=== PATIENT | male | born 1990 | race Caucasian/White ===

== ENCOUNTER 2020-12-09 22:47 | Emergency (ER) | payer MEDICAID, SELFPAY ==
--- NOTE | ~2020-12-09 | XR_ITS ---
EXAMINATION: XR ELBOW, RIGHT CLINICAL INFORMATION: Injury. Pain. COMPARISON: None TECHNIQUE: AP, lateral, and oblique views of the right elbow. FINDINGS: There is a there is a calcified density seen on the lateral view along the anterior aspect of the joint. This may represent an intra-articular body, measuring 1.6 cm. This may also simply represent soft tissue calcification in the region. There is no donor site for fracture. No elbow joint effusion. XR/XR elbow RT 2V IMPRESSION: Calcific density along the anterior elbow joint line. No donor site for fracture identified. No elbow joint effusion. This may represent an intra-articular body or soft tissue calcification
[2020-12-09 22:49] VITALS: BP 115/76; PULSE 102; RESP 18; TEMP 36.7; O2SAT 97; BMI 29.5
--- NOTE | 2020-12-09 23:32 | ED.EXTPRO ---
HPI - Extremity Problem General Chief complaint: Extremity Injury, Upper Stated complaint: elbow inj Time Seen by Provider: 12/09/20 23:32 History of Present Illness HPI Narrative: Patient is a 30-year-old male complaining of pain to the right elbow. Patient jammed it. Subsequently felt pain there. Unable to straighten the elbow. Patient denies any systemic complaints. No head injury. No nausea no vomiting. Came in for further evaluation. No pain prior to the injury. Related Data Allergies Allergy/AdvReac Type Severity Reaction Status Date / Time aspirin [ASPIRIN] Allergy Unknown UNKNOWN Verified 12/09/20 22:52 SEAFOOD Allergy Unknown UNKNOWN Uncoded 02/17/20 16:30 Review of Systems Review of Systems: No fever no chills no chest pain or shortness of breath no nausea no vomiting PMFSH Past Medical History Medical History Asthma Social History Social History Advance Directives: No Physical Exam Vital Signs: Vital Signs: Last Vital Signs Temp 98.0 F 12/09/20 22:49 Pulse 102 H 12/09/20 22:49 Resp 18 12/09/20 22:49 BP 115/76 12/09/20 22:49 Pulse Ox 97 12/09/20 22:49 Body Mass Index 29.5 Appearance: Alert. Oriented X3. No acute distress. Eyes: Pupils equal, round and reactive to light. ENT: Pharynx normal. Neck: Normal inspection. Neck supple. No lymph nodes noted. No crepitus CVS: Normal heart rate and rhythm. Pulses normal. Normal S1 and S2 Respiratory: No respiratory distress. Breath sounds normal. No Wheezing. No rales Abdomen: Soft and nontender. No rigidity. No distention. good BS x4 Skin: Skin warm and dry. Normal skin color. Normal skin turgor. Extremities: Examination of the right elbow showed elbow held in flexion. Limited range of motion secondary to pain. There is no gross the family's sensation grossly intact. Skin intact. Motor and wrist finger intact. There is no anatomical snuffbox tenderness. There is no shoulder pain. Axillary nerve intact. Neuro: Oriented X 3. No motor deficit. No sensory deficit. Moving all extermities. No slurred speech MDM - Extremity (Nontraumatic) MDM Narrative Medical decision making narrative: X-ray showed a questionable calcification. More likely this is actually a fracture. Patient had very limited range of motion he is a young male with no significant past medical history had full use of the elbow prior to the injury. Will have patient be sent to the orthopedic clinic. Close follow-up outpatient Tylenol for pain as patient has numerous allergies. In stable condition. Discharge Plan Discharge Clinical Impression: Elbow fracture Patient Disposition: Home, Self-Care Additional Instructions: Please use the sling for comfort. Please follow-up on Friday orthopedic clinic Referrals: Robert De Souza MD [Physician] - 2 days (Please follow-up on Friday fracture Clinic)
[2020-12-09] MEDS: Acetaminophen 325 MG TABLET 650 MG PO (23:41)
== END 2020-12-10 00:04 | disposition home or self-care (01) ==
PROVIDERS: Emergency Provider Emergency Medicine Emergency Medical Services
DX: S42.401A Unspecified fracture of lower end of right humerus, initial encounter for closed fracture (principal); X58.XXXA Exposure to other specified factors, initial encounter; Y93.9 Activity, unspecified; Y92.9 Unspecified place or not applicable; Y99.9 Unspecified external cause status
CPT/HCPCS: 73070; 99283; 99284

== ENCOUNTER 2022-11-05 11:47 | Outpatient (REF) | payer MEDICAID, SELFPAY ==
--- NOTE | ~2022-11-05 | XR_ITS ---
EXAMINATION: XR LUMBOSACRAL SPINE CLINICAL INFORMATION: Pain radiating to the right leg. COMPARISON: None available. TECHNIQUE: Three views of the lumbosacral spine. FINDINGS: The vertebral bodies and posterior elements are normal. The disc spaces are preserved and the vertebral alignment is normal. The paraspinal soft tissues are normal. XR/XR lumbar spine 2-3V IMPRESSION: No significant radiographic abnormality. If symptoms persist, recommend correlation with an MRI.
--- NOTE | ~2022-11-05 | XR_ITS ---
EXAMINATION: XR HIP, RIGHT CLINICAL INFORMATION: Pain. COMPARISON: None available. TECHNIQUE: Two views of the right hip. FINDINGS: Bones and soft tissues are normal. No fracture. Alignment is anatomic. Hip joint space is maintained. XR/XR hip RT min 2V IMPRESSION: Normal right hip.
== END 2022-11-05 11:48 | disposition home or self-care (01) ==
LOC: HO.HHCX 11:47
PROVIDERS: Visit Provider Nurse Practitioner Primary Care
DX: M25.551 Pain in right hip (principal); M54.41 Lumbago with sciatica, right side
CPT/HCPCS: 72100; 73502

== ENCOUNTER 2023-02-01 23:01 | Emergency (ER) | payer MEDICAID, SELFPAY ==
[2023-02-01 23:09] VITALS: BP 131/78; PULSE 85; RESP 17; TEMP 36.6; O2SAT 96; BMI 28.0
[2023-02-01 23:51] LABS: IDNOW Serial# 08D9AD1C; IDNOW Serial# 9DB6401D; Influenza A Negative (Negative); Influenza B2 Negative (Negative); Strep A Nucleic Acid Negative (Negative)
[2023-02-01 23:52] LABS: COVID-19 Test Negative (Negative); IDNOW Serial# BCCEAD1C
--- OUTSIDE RECORDS SUMMARY | 2023-02-02 00:11 | XMS_ITS | Continuity of Care Document ---
Author Name Unknown Organization [facility] habilitation Address [address] [place] [address]- Care Team Providers Care Soil Analyst Name Role Phone Not on Staff, PCP Primary Care Physician Unavail able Encounter [facility] [place] Date(s): 08/15/22 - 11/25/22 [facility] [address] [place] [address]- Encounter Diagnosis Pain in right hip(Final) - Discharge Disposition: A-D/C Home Attending Physician: Mariel OLIVAS, Sarah Lehman Admitting Physician: Mariel OLIVAS, Sarah Lehman Referring Physician: Mariel OLIVAS, Sarah Lehman Allergies, Adverse Reactions, Alerts Substance Reaction Severity Status aspirin Active shellfish Anaphylactic reaction to food Active Medications albuterol CFC free 90 mcg/inh inhalation aerosol 2, puffs, Inhalation, Every 4 hours, PRN, # 1 each, Refills 0, Tot. Refills 0, Maintenance, 09/25/19 10:48:00 EDT, Aerosol, Print Requisition Start Date: 09/25/19 Stop Date: 10/25/19 Status: Ordered omeprazole 20 mg oral delayed release tablet 1 tablet = 20 mg, By Mouth, Daily, # 14 tablet, 0 Refills, Maintenance, 09/25/19 10:48:00 EDT, CR Tablet Start Date: 09/25/19 Stop Date: 10/09/19 Status: Ordered Percocet-5/325 325 mg-5 mg oral tablet 1 tablet, By Mouth, Every 4 hours, PRN for pain, # 15 tablet, 0 Refills, Maintenance, Tablet Start Date: 11/12/11 Status: Ordered Patient Care team information Care Team Personnel Name: Not on Staff, PCP Position: S Physician (General Medicine) Member Role: PCP Care Team Related Persons Name: LISA SANTOS Address: home [address] [place] [address]
--- OUTSIDE RECORDS SUMMARY | 2023-02-02 00:11 | XMS_ITS | Continuity of Care Document ---
Author Name Unknown Organization [facility] ter Address [address] [place] [address]- Care Team Providers Care Training Program Developer Name Role Phone Mariel SAMPLE MOUNTER, Sarah Lehman Primary Care Physician [phone] Encounter [facility] [place] Date(s): 12/11/20 - 12/11/[address] [address]- Encounter Diagnosis Elbow sprain(Final) - 12/11/20 Discharge Disposition: A-D/C Home Attending Physician: Lis Gimenez MD Admitting Physician: Lis Gimenez MD Referring Physician: Not on Staff, Referring MD Allergies, Adverse Reactions, Alerts Substance Reaction Severity [...] Maintenance, Tablet Start Date: 11/12/11 Status: Ordered Results Radiology Reports * Exam Date Time Procedure Performing Provider Status 12/11/20 4:57 PM Forearm 2 Views Right Sravani Khan n; Auth (Verified) Notes: (Forearm 2 Views Right) Reason For Exam: Trauma RESULT: Forearm 2 Views Right Elbow Min 3 Views Right, Forearm 2 Views Right, 3 views Hx of Present Illness: injury to rt elbow on Friday playing basketball; Reason: Trauma; with Pain; Clinical Question(s): Fracture. COMPARISON: None. FINDINGS: No fracture or dislocation. No arthritic changes. No joint effusion. There is soft tissue swelling in the medial aspect of the elbow and dorsum of the forearm. Along the volar, medial aspect of the elbow, there is dystrophic mineralization. IMPRESSION: 1. Soft tissue swelling with no acute displaced fracture. 2. Dystrophic mineralization along the anterior, medial aspect of the elbow, likely sequela of prior trauma. WSN: [id number] Ordering Physician: Bridger Yoon MD Dictated By: Tawny Chavarria MD Dictated Date/Time: 12/11/20 5:11 pm Reviewed By: Tawny Chavarria MD Signed By: Tawny Chavarria MD Signed Date/Time: 12/11/20 5:11 pm Transcribed By: MURALI Transcribed Date/Time: 12/11/20 5:00 pm * Exam Date Time Procedure Performing Provider Status 12/11/20 4:57 PM Elbow Min 3 Views Right Eduardo Khan; Auth (Verified) Notes: (Elbow Min 3 Views Right) Reason For Exam: with Pain;Trauma RESULT: Elbow Min 3 Views Right Elbow Min 3 Views Right, Forearm 2 Views Right, 3 views Hx of Present Illness: injury to rt elbow on Friday playing basketball; Reason: Trauma; with Pain; Clinical Question(s): Fracture. COMPARISON: None. FINDINGS: No fracture or dislocation. No arthritic changes. No joint effusion. There is soft tissue swelling in the medial aspect of the elbow and dorsum of the forearm. Along the volar, medial aspect of the elbow, there is dystrophic mineralization. IMPRESSION: 1. Soft tissue swelling with no acute displaced fracture. 2. Dystrophic mineralization along the anterior, medial aspect of the elbow, likely sequela of prior trauma. WSN: [id number] Ordering Physician: Bridger Yoon MD Dictated By: Tawny Chavarria MD Dictated Date/Time: 12/11/20 5:11 pm Reviewed By: Tawny Chavarria MD Signed By: Tawny Chavarria MD Signed Date/Time: 12/11/20 5:11 pm Transcribed By: MURALI Transcribed Date/Time: 12/11/20 5:00 pm Vital Signs Most recent to oldest [Reference Range]: 1 2 3 Height 175 cm (12/11/20 8:12 PM) 175 cm (12/11/20 6:37 PM) 175 cm (12/11/20 3:06 PM) Weight 92.3 kg (12/11/20 8:12 PM) 92.3 kg (12/11/20 6:37 PM) 92.3 kg (12/11/20 3:06 PM) Oxygen Saturation [94-100 %] 100 % (12/11/20 8:12 PM) 100 % (12/11/20 6:37 PM) 99 % (12/11/20 3:06 PM) Pulse Rate [55-90 bpm] 81 bpm (12/11/20 8:12 PM) 66 bpm (12/11/20 6:37 PM) 76 bpm (12/11/20 3:06 PM) Body Mass Index [18.5-24.99] 30.14 *>HHI* (12/11/20 8:12 PM) 30.14 *>HHI* (12/11/20 6:37 PM) 30.14 *>HHI* (12/11/20 3:06 PM) Blood Pressure [90-138/55-84 mm Hg] 136/84mm Hg (12/11/20 8:12 PM) 128/84mm Hg (12/11/20 6:37 PM) 126/75mm Hg (12/11/20 3:06 PM) Respiratory Rate [16-30 br/min] 18 br/min (12/11/20 8:12 PM) 14 br/min *L* (12/11/20 6:37 PM) 16 br/min (12/11/20 3:06 PM) Temperature [96.8-100.4 DegF] 98.3 DegF (12/11/20 8:12 PM) 98.1 DegF (12/11/20 6:37 PM) 98.4 DegF (12/11/20 3:06 PM) Mode of Delivery (Oxygen) Room air (12/11/20 8:12 PM) Room air (12/11/20 6:37 PM) Room air (12/11/20 3:06 PM) Blood pressure sites Arm, right (12/11/20 8:12 PM) Arm, right (12/11/20 6:37 PM) Arm, left (12/11/20 3:06 PM) Temperature Route Oral (12/11/20 8:12 PM) Oral (12/11/20 6:37 PM) Oral (12/11/20 3:06 PM) Dry Weight 92.3 kg (12/11/20 8:12 PM) 92.3 kg (12/11/20 6:37 PM) 92.3 kg (12/11/20 3:06 PM) Weight Obtained Via Standing scale (12/11/20 3:06 PM) Dry Weight Obtained Via Standing scale (12/11/20 3:06 PM)
--- OUTSIDE RECORDS SUMMARY | 2023-02-02 00:11 | XMS_ITS | Continuity of Care Document ---
Author Name Unknown Organization [facility] Address [address] [place] [address]- Care Team Providers Care Forestry Supervisor Name Role Phone Mariel OLIVAS, Sarah Lehman Primary Care Physician Encounter [facility] [place] Date(s): 07/03/22 - 07/03/[address] [address]- Discharge Disposition: A-D/C Home Attending Physician: Joey MCGREGOR, Roberth Amin Admitting Physician: Roberth Cook MD Referring Physician: Not on Staff, Referring [...] Exam Date Time Procedure Performing Provider Status 07/03/22 8:56 PM US Doppler Ext Lower Venous Right April Rogers; Auth (Verified) Notes: (US Doppler Ext Lower Venous Right) Reason For Exam: Pain in limb;Other: RESULT: US Doppler Ext Lower Venous Right US Doppler Ext Lower Venous Right Hx of Present Illness: patient has been having right leg pain for months but right now the right knee is very painful as well as the ankle and calf. no mechanism of injury.; Reason: Other:; Pain in limb; Clinical Question(s): Thrombus COMPARISON: None IMAGING TECHNIQUE: Ultrasound of the veins from the groin through the calf was performed using grayscale, color, and spectral Doppler ultrasound assessing for complete compressibility and normal flowcharacteristics. FINDINGS: Common femoral vein: Patent. No thrombosis. Femoral vein: Patent. No thrombosis. Popliteal vein: Patent. No thrombosis. Gastrocnemius veins: The visualized portions are patent without evidence of thrombosis. Peroneal veins: The visualized portions are patent without evidence of thrombosis. Posterior tibial veins: The visualized portions are patent without evidence of thrombosis. Contralateral common femoral vein: Patent. No thrombosis. OTHER FINDINGS: There is diffuse calf edema. IMPRESSION: No evidence of deep venous thrombosis. I have personally reviewed the images and I agree with this report. WSN: [id number] Ordering Physician: Thaddeus Almendarez Dictated By: Marshall Cortes MD Dictated Date/Time: 07/03/22 9:19 pm Reviewed By: Jarred Felipe MD Signed By: Jarred Felipe MD Signed Date/Time: 07/03/22 9:24 pm Transcribed By: MURALI Transcribed Date/Time: 07/03/22 9:15 pm Vital Signs Most recent to oldest [Reference Range]: 1 2 Height 178 cm (07/03/22 10:04 PM) 178 cm (07/03/22 6:46 PM) Weight 85 kg (07/03/22 10:04 PM) 85 kg (07/03/22 6:46 PM) Oxygen Saturation [94-100 %] 99 % (07/03/22 10:04 PM) 96 % (07/03/22 6:46 PM) Pulse Rate [55-90 bpm] 61 bpm (07/03/22 10:04 PM) 72 bpm (07/03/22 6:46 PM) Blood Pressure [90-138/55-84 mm Hg] 123/ 98mm Hg (07/03/22 10:04 PM) 125/92mm Hg (07/03/22 6:46 PM) Respiratory Rate [16-30 br/min] 18 br/mi n (2/1/23 10:04 PM) 18 br/min (07/03/22 6:46 PM) Temperature [96.8-100.4 DegF] 98.8 DegF (07/03/22 10:04 PM) 98.9 DegF (07/03/22 6:46 PM) Mode of Delivery (Oxygen) Room air (07/03/22 10:04 PM) Room air (07/03/22 6:46 PM) Blood pressure sites Arm, left (07/03/22 10:04 PM) Arm, right (07/03/22 6:46 PM) Temperature Route Temporal (07/03/22 10:04 PM) Temporal (07/03/22 6:46 PM) Dry Weight 85 kg (07/03/22 10:04 PM) 85 kg (07/03/22 6:46 PM) Note * Roberth Cook MD: PERFORM, SIGN, VERIFY Event Display: Patient Education Handout Authored Date: * Roberth Cook MD: PERFORM Event Display: Patient Education Leaflets Authored Date: Muscle Strain in the Extremities ?? [id number] Muscle Strain in the Extremities A muscle strain is a stretching and tearing of muscle fibers. This causes pain, especially when youmove that muscle. There may also be some swelling and bruising. Home care ??? Keep the hurt area raised above heart level to reduce pain and swelling. This is especially important during the first 48 hours. ??? Apply an ice pack over the injured area for 15 to 20minutes every??3 to 6??hours. You should do this for??the first??24 to 48 hours.??You can make an ice pack by filling a plastic bag that seals at the top with ice cubes and then wrapping it with a thin towel. Be careful not to injure your skin with the ice treatments. Ice should never be applied directly to skin. Continue the use of ice packs for relief of pain and swelling as needed. After 48 to72 hours, or as directed by your healthcare provider, apply heat??(warm shower or??warm bath)??for 15 to 20 minutes several times a day. Or you can switch between ice and heat. ??? You may use??nyek-dra-hjfsjog pain medicine to control pain, unless another medicine was prescribed. If you have long-term (chronic) liver or kidney disease, ever had a stomach ulcer or gastrointestinal bleeding, or take a blood thinner, talk with your healthcare provider??before??using these medicines. ??? For leg strains: If crutches have been advised, don???t put full weight on the hurt leg until you can do so without pain. You can return to sports when you're able to hop and run on the injured leg without pain. ?? Follow-up care Follow up with your??healthcare provider as advised. ?? When to get medical advice Call your healthcare provider right away if any of these occur: ??? The toes of the injured leg become??swollen, cold, blue, numb, or tingly ??? Pain or swelling increases ?? Last Reviewed Date: 2021 ?? [id number] The [employer]. All rights reserved. This information is not intended as a substitute for professional medical care. Always follow your healthcare professional's instructions. ?? * BHSPowerscribe , CIS S: TRANSCRIBE Matteo MCGREGOR, Devrim: VERIFY Sophia MCGREGOR, Marshall A: SIGN Event Display: Result: Authored Date: US Doppler Ext Lower Venous Right Hx of Present Illness: patient has been having right leg pain for months but right now the right knee is very painful as well as the ankle and calf. no mechanism of injury.; Reason: Other:; Pain in limb; Clinical Question(s): Thrombus COMPARISON: None IMAGING TECHNIQUE: Ultrasound of the veins from the groin through the calf was performed using grayscale, color, and spectral Doppler ultrasound assessing for complete compressibility and normal flowcharacteristics. FINDINGS: Common femoral vein: Patent. No thrombosis. Femoral vein: Patent. No thrombosis. Popliteal vein: Patent. No thrombosis. Gastrocnemius veins: The visualized portions are patent without evidence of thrombosis. Peroneal veins: The visualized portions are patent without evidence of thrombosis. Posterior tibial veins: The visualized portions are patent without evidence of thrombosis. Contralateral common femoral vein: Patent. No thrombosis. OTHER FINDINGS: There is diffuse calf edema. IMPRESSION: No evidence of deep venous thrombosis. I have personally reviewed the images and I agree with this report. WSN: [id number] Ordering Physician: Thaddeus Almendarez Dictated By: Marshall Cortes MD Dictated Date/Time: 07/03/22 9:19 pm Reviewed By: Jarred Felipe MD Signed By: Jarred Felipe MD Signed Date/Time: 07/03/22 9:24 pm Transcribed By: MURALI Transcribed Date/Time: 07/03/22 9:15 pm Patient Care team information Care Team Personnel Name: Sarah Floyd NP Position: [facility] Outreach Member Role: PCP Address: Address: [address] [place] [id number]- [place] Name: Roberth Cook MD Position: [facility] ED Medicine MD Member Role: Admitting Physician Address: Address: [address] [facility] [place] [address]- Name: Deysi Diaz RN Position: [facility] ED RN W/OE and Tasks Member Role: Patient Care Provider Care Team Related Persons Name: LISA SANTOS Address: home [address] [place] [address]
--- OUTSIDE RECORDS SUMMARY | 2023-02-02 00:11 | XMS_ITS | Continuity of Care Document ---
Author Name Unknown Organization [facility] Address [address] [place] [address]- Care Team Providers Care Automatic Mounter Name Role Phone Not on Staff, PCP Primary Care Physician Unavail able Encounter [facility] [place] Date(s): 09/25/19 - 09/25/[address] [address] [phone] Discharge Disposition: A-D/C Home Attending Physician: Roberth Cook MD Admitting Physician: Roberth Cook MD Referring Physician: [...] Exam Date Time Procedure Performing Provider Status 09/25/19 10:01 AM Chest Single Frontal View Palasciano , Russell; Auth (Verified) Notes: (Chest Single Frontal View) Reason For Exam: Persistent Cough RESULT: Chest Single Frontal View Chest Single Frontal View INDICATION/CLINICAL QUESTION: Reason: Persistent Cough; Clinical Question(s): Pneumonia; Hx of Present Illness: anxiety attack, worried about COVID. TECHNIQUE: AP chest 1002 hours 09/25/2019. COMPARISON: None.. FINDINGS: LINES AND TUBES: Absent. LUNGS AND PLEURA: RIGHT CHEST: The lung is clear and there is no effusion or pneumothorax.. LEFT CHEST: The lung is clear and there is no effusion or pneumothorax.. HEART AND MEDIASTINAL CONTOURS: Normal. BONES AND SOFT TISSUES: No acute abnormality.. IMPRESSION: 1. No active disease in chest. WSN: [id number] Ordering Physician: Roberth Cook Dictated By: Dmitri Christopher MD Dictated Date/Time: 09/25/19 10:09 a Reviewed By: Dmitri Christopher MD Signed By: Dmitri Christopher MD Signed Date/Time: 09/25/19 10:09 am Transcribed By: MURALI Transcribed Date/Time: 09/25/19 10:08 am Vital Signs Most recent to oldest [Reference Range]: 1 2 Height 172 cm (09/25/19 12:07 PM) 172 cm (09/25/19 9:29 AM) Weight 93 kg (09/25/19 12:07 PM) 93 kg (09/25/19 9:29 AM) Oxygen Saturation [94-100 %] 98 % (09/25/19 12:07 PM) 99 % (09/25/19 9:17 AM) Pulse Rate [55-90 bpm] 89 bpm (09/25/19 12:07 PM) 93 bpm *H* (09/25/19 9:17 AM) Body Mass Index [18.5-24.99] 31.44 *>HHI* (09/25/19 12:07 PM) Blood Pressure [90-138/55-84 mm Hg] 121/ 89mm Hg (09/25/19 12:07 PM) 128/86mm Hg (09/25/19 9:17 AM) Respiratory Rate [16-30 br/min] 17 br/mi n (09/25/19 12:07 PM) 17 br/min (09/25/19 9:17 AM) Temperature [96.8-100.4 DegF] 97.8 DegF (09/25/19 9:17 AM) Mode of Delivery (Oxygen) Room air (09/25/19 12:07 PM) Room air (09/25/19 9:17 AM) Temperature Route Oral (09/25/19 9:17 AM) Dry Weight 93 kg (09/25/19 12:07 PM) 93 kg (09/25/19 9:29 AM)
--- OUTSIDE RECORDS SUMMARY | 2023-02-02 00:11 | XMS_ITS | Continuity of Care Document ---
Author Name Unknown Organization [facility] ter Address [address] [place] [address]- Care Team Providers Care Animal Husbandry Worker Name Role Phone Not on Staff, PCP Primary Care Physician Unavail able Encounter [facility] [place] Date(s): 02/24/20 - 02/24/[address] [address]- [facility] Discharge Disposition: A-D/C Walkout Attending Physician: Not on Staff, Attending MD Admitting Physician: Not on Staff, Admitting MD Referring Physician: Not on Staff, Referring [...] Maintenance, Tablet Start Date: 11/12/11 Status: Ordered Vital Signs Most recent to oldest [Reference Range]: 1 Oxygen Saturation [94-100 %] 100 % (02/24/20 10:11 PM) Pulse Rate [55-90 bpm] 78 bpm (02/24/20 10:11 PM) Blood Pressure [90-138/55-84 mm Hg] 126/ 84mm Hg (02/24/20 10:11 PM) Respiratory Rate [16-30 br/min] 17 br/mi n (02/24/20 10:11 PM) Temperature [96.8-100.4 DegF] 99.3 DegF (02/24/20 10:11 PM) Mode of Delivery (Oxygen) Room air (02/24/20 10:11 PM) Blood pressure sites Arm, left (02/24/20 10:11 PM) Temperature Route Oral (02/24/20 10:11 PM)
--- OUTSIDE RECORDS SUMMARY | 2023-02-02 00:11 | XMS_ITS | Continuity of Care Document ---
Author Name Unknown Organization [facility] habilitation Address [address] [place] [address]- Care Team Providers Care Cloth Presser Name Role Phone Not on Staff, PCP Primary Care Physician Unavail able Encounter [facility] [place] Date(s): 09/27/22 - 10/27/22 [facility] [address] [place] [address]- Attending Physician: AdmtrDuyen Admitting Physician: AdmtrDuyen Referring Physician: Admtr Ar8 Allergies, Adverse Reactions, Alerts Substance Reaction Severity [...] Persons Name: LISA SANTOS Address: home [address] [place] [address]
--- NOTE | 2023-02-02 00:35 | ED_ITS ---
HPI - URI/Sore Throat General Chief Complaint: Upper Respiratory Symptoms Stated Complaint: sore throat,headache Time Seen by Provider: 02/02/23 00:16 Source: patient Mode of arrival: ambulatory Limitations: no limitations History of Present Illness HPI Narrative: 32-year-old male presents to the ER for evaluation of sore throat headache for the last 4 days. He states he also had a fever 4 days ago. He reports in termittent right lower molar pain as well when he eats. No facial swelling, gum swelling. He reports difficulty eating and drinking due to sore throat. No known sick contacts. No neck swelling. She has no chest pain, abdominal pain. He did have 1 episode of vomiting earlier this week. MD elicited complaint: sore throat and other (Headache) Onset (ago): day(s) Consistency: intermittent Severity: moderate Able to tolerate fluids by mouth: Yes Exacerbating factors: swallowing Relieving factors: nothing Associated symptoms: headache, sore throat, nausea and vomiting Treatments prior to arrival: none Related Data Allergies Allergy/AdvReac Type Severity Reaction Status Date / Time aspirin [ASPIRIN] Allergy Unknown UNKNOWN Verified 02/01/23 23:07 SEAFOOD Allergy Unknown UNKNOWN Uncoded 02/01/23 23:07 Review of Systems Review of Systems: Yes all other systems are reviewed and are negative [facility] Past Medical History Medical History Asthma Social History Social History Advance Directives: No Advance Directives Information Provided: Yes Physical Exam Vital Signs: Vital Signs: Last Vital Signs Temp 97.9 F 02/01/23 23:09 Pulse 74 02/02/23 00:58 Resp 14 02/02/23 00:58 BP 113/83 02/02/23 00:58 Pulse Ox 96 02/02/23 00:58 O2 Del Method Room Air 02/02/23 00:58 BMI result Body Mass Index 28.0 Appearance: Alert. Oriented X3. No acute distress. Head: normocephalic, atraumatic. Eyes: Pupils equal, round and reactive to light. ENT: Pharynx normal. No tonsillar swelling or exudate. Mild erythema of the posterior oropharynx, uvula midline. right lower molar with silver filling in place, nontender, no gingival tenderness or swelling. no trisumus Neck: Normal inspection. Neck supple. no swelling or LAD CVS: Normal heart rate and rhythm. Pulses normal. Respiratory: No respiratory distress. Breath sounds normal. Skin: Skin warm and dry. Normal skin color. Normal skin turgor. No rashes. Extremities: No lower extremity edema. No joint swelling. Neuro/psych: Oriented X 3. nonfocal. CN II-XII intact. Normal speech and cognition. Medical Decision Making Medical Decision Making [facility] Narrative: 32-year-old male presents to the ER for evaluation of sore throat headache for the last 4 days. He also has some intermittent dental pain on the right lower molar. No facial swelling. Exam is unremarkable from a dental perspective, no evidence of infection at this time. He tested negative for COVID, flu, strep throat. He has no tonsillar swelling on examination. He is able to tolerate p.o. although with some discomfort. Patient counseled on likely viral pharyngitis. He was counseled on diagnosis and management as well as return precautions. He is stable for discharge home. Encouraged follow-up with his dentist and primary care doctor. Stable for DC Differential Diagnosis Differential Diagnoses: The differential diagnosis associated with the presentation includes strep, covid, flu, rsv, other viral syndrome, bronchitis, pneumonia, no evidence of peritonsillar abcsess or retropharyngeal abscess toothache, dental caries, dental infection Lab Data [facility] Lab Attestation statement: I reviewed the patient's lab results. Labs: Lab Results 02/01/23 02/01/23 02/01/23 Range/Units 23:31 23:31 23:31 COVID-19 (JOVAN) Negative (Negative) COVID-19 Clin Com See Note Influenza Type A (BRENDA) Negative (Negative) Influenza Type B (BRENDA) Negative (Negative) Influenza A & B Note See Note S. pyogenes GrpA BRENDA Negative (Negative) External Record Review External record reviewed: Prior outpatient labs Prescription Management I considered prescription management with: Pain Medication and Antibiotic Critical Care Time Critical Care Time Critical Care Time: No Discharge Plan Discharge Clinical Impression: Viral pharyngitis Patient Disposition: Home, Self-Care Instructions: Pharyngitis (ED) Additional Instructions: You tested negative for COVID, flu and strep throat. Your symptoms most likely viral. They will resolve with time. Make sure drinking plenty of fluids. Take the prescribed anti-inflammatory medication as needed for pain. Recommend [id number] Chloraseptic spray and Cepacol lozenges as needed for sore throat. Follow-up with your doctor as needed. Follow-up with your dentist for evaluation of your tooth pain. If you develop new or worsening symptoms call 911 or come back to the ER for further evaluation. Interventions: ED Discharge Assessment Last Done: 02/02/23 01:01
[2023-02-02 00:58] VITALS: BP 113/83; PULSE 74; RESP 14; O2SAT 96
== END 2023-02-02 01:03 | disposition home or self-care (01) ==
PROVIDERS: Emergency Provider Internal Medicine
DX: J02.8 Acute pharyngitis due to other specified organisms (principal); R50.9 Fever, unspecified; R51.9 Headache, unspecified; R11.2 Nausea with vomiting, unspecified; Z20.822 Contact with and (suspected) exposure to COVID-19; Z20.828 Contact with and (suspected) exposure to other viral communicable diseases; Z79.899 Other long term (current) drug therapy
CPT/HCPCS: 87502; 87635; 87651; 99283

== ENCOUNTER 2024-08-05 14:07 | Outpatient (REF) | payer MEDICAID, SELFPAY ==
[2024-08-05 16:23] LABS: MANUAL DIFF FLAG NO
[2024-08-05 16:41] LABS: Basophils Percent Auto 0.2 % (0-2); Eosinophils Percent Auto 0.4 % (0-4); Hematocrit 45.5 % (42.0-52.0); Hemoglobin 15.3 g/dl (14.0-18.0); Imm Gran Abs Auto 0.01 X10*3/uL (0.00-0.03); Imm Gran Pct Auto 0.2 % (0.0-0.4); Lymphocytes Absolute Auto 1.4 X10*3/uL (1.2-4.9); Lymphocytes Percent Auto 27.2 % (20-40); Mean Corpuscular HGB Conc 33.6 g/dl (31.0-36.0); Mean Corpuscular Hemoglobin 31.4 pg (27.0-33.0); Mean Corpuscular Volume 93.2 fL (80.0-98.0); Monocytes Absolute Auto 0.4 X10*3/uL (0.1-1.2); Monocytes Percent Auto 7.3 % (2-11); Neutrophils Absolute Auto 3.3 x10*3/uL (2.0-8.3); Neutrophils Percent Auto 64.7 % (45-73); Platelet Count 281 X10*3/uL (160-400); Red Blood Count 4.88 X10*6/uL (4.60-5.80); Red Cell Distribution Width 12.6 % (11.0-16.0); White Blood Count 5.1 X10*3/uL (4.8-10.8)
--- OUTSIDE RECORDS SUMMARY | 2024-08-05 17:19 | XMS_ITS | Encounter Summary ---
Author Organization [employer] Address [address] [facility] [address] [place] [address] Care Team Providers Care Human Resources Consultant Name Role Phone Sarah Floyd Primary Care Provider [phone] Reason for Visit * Reason Onset Date Comments Lab Orders 08/04/2024 Encounter Details Date Type Department Care Team ([facility] st Contact Info) Description 08/04/2024 Telephone [facility] [address] [place], [place] [phone] Sarah Floyd ANP [address] [place], [place] [phone] Lab Orders Social History Tobacco Use Types Packs/Day Years Used Date Smoking Tobacco: Never Passive Smoke Exposure: Never Smokeless Tobacco: Never Alcohol Use Standard Drinks/Week Comments Not Currently 0 (1 standard drink = 0.6 oz pur e alcohol) Sex and Gender Information Value Date Recorded Sex Assigned at Male 04/01/2022 10:14 AM EDT Legal Sex Male 10:14 AM EDT Gender Identity Male 04/01/2022 10:14 AM EDT Sexual Orientation Straight 04/01/2022 10 :14 AM EDT documented as of this encounter Miscellaneous Notes * Telephone Encounter - Xiomara Hopkins RN - 08/04/2024 1:35 PM EST Telephone call placed to pt regarding below message. Informed he hasn't been seen since 2022 and has [facility] appt booked for later today. Would recommend 30min appt with PCP to reestablish care. Pt concerned that he needs labs done for dizziness. Informed he is being [facility] for [facility] and that if provider believes he needs labs, they will order them. Routine labs can be ordered by PCP at appt. Booked 30 min appt for 08/26 with PCP. Pt reports that he is in insurance enrollment now fixing his [facility] and then will come down to [facility]. * Telephone Encounter - Sunny Jacky - 08/04/2024 10:31 AM EST TC from pt requesting to Get blood test done. Pt would like to get Checked to see if he is missing anything or what he needs. Pt states that he has been feeling different when waking up in the Morning and Pt states that In Between his Thigh and his Private Part it will start to feel Uncomfortable at times. Contact pt at [phone] documented in this encounter Plan of Treatment Upcoming Encounters Date Type Department Care Team (Late st Contact Info) Description 08/26/2024 1:30 PM EDT Office Visit [facility] [address] [place] [address] Sarah Floyd ANP [address] [place] [address] documented as of this encounter Visit Diagnoses Not on filedocumented in this encounter Care Teams Human Resources Consultant Relationship Specialty Start Date End Date Sarah Floyd ANP [address] [place] [address] PCP - General Family Medicine 04/06/20 documented as of this encounter
--- OUTSIDE RECORDS SUMMARY | 2024-08-05 17:19 | XMS_ITS | Clinical Summary ---
Author Organization [employer] Address [address] [facility] [address] [place] [address] Care Team Providers Care Health Safety Instructor Name Role Phone Sarah Floyd Primary Care Provider [phone] Allergies Active Allergy Reactions Criticality Noted Date Comments Aspirin Angioedema High 10/04/2019 Shellfish-Derived Products Anaphylaxis High 10/04/19 20 Medications albuterol 108 (90 Base) MCG/ACT inhaler Inhale 2 puffs every 4 (four) hours. 0 Active EPINEPHrine (EpiPen 2-Nas) 0.3 MG/0.3ML injection syringe Inject 0.3 mL into the shoulder, thigh, or buttocks. 1 Active chlorhexidine (Peridex) 0.12 % solution SWISH 15MLS BY MOUTH TWICE DAILY AND DO NOT SWALLOW 4 Active acetaminophen (Tylenol) 500 MG tabletIndication s:Nonintractable headache, unspecified chronicity pattern, unspecified headache type Take 2 tablets (1,000 mg) by mouth every 6 (six) hours if needed for moderate pain or headaches for up to 25 doses. 50 tablet 5 Active Active Problems Problem Noted Date Diagnosed Date Low back pain with right-sided sciatica 11/06/19 23 Right hip pain 08/01/2022 Acute pain of right knee 08/01/2022 Asthma 11/08/2019 Vitamin D deficiency 11/08/2019 Encounters Date Type Department Care Team Description 08/05/2024 1:20 PM EST Office Visit [facility] [address] [place], [place] [phone] Dizziness (Primary Dx); Nonintractable headache, unspecified chronicity pattern, unspecified headache type; Neck tightness 08/04/2024 Telephone [facility] [address] [place] [phone] Sarah Floyd ANP Lab Orders 06/28/2024 Telephone [facility] [address] [place] [phone] Sarah Floyd ANP Nurse Triage from Last 3 Months Immunizations Name Administration Dates Next Due Influenza injectable quadrivalent preservative f ree 06/16/2020 Tdap 06/16/2020 Social History Tobacco Use Types Packs/Day Years Used Date Smoking Tobacco: Never Passive Smoke Exposure: Never Smokeless Tobacco: Never Tobacco Cessation:Counseling Given: Not Answered Alcohol Use Standard Drinks/Week Comments Not Currently 0 (1 standard drink = 0.6 oz pur e alcohol) Sex and Gender Information Value Date Recorded Sex Assigned at Male 04/01/2022 10:14 AM EDT Legal Sex Male 10:14 AM EDT Gender Identity Male 04/01/2022 10:14 AM EDT Sexual Orientation Straight 04/01/2022 10 :14 AM EDT Last Filed Vital Signs Vital Sign Reading Time Taken Comments Blood Pressure 126/86 08/05/2024 1:43 PM EST Pulse 70 08/05/2024 1:37 PM EST Temperature 36.7 ??C (98 ??F) 08/05/2024 1:37 PM EST Respiratory Rate 20 11/05/2022 10:45 AM EDT Oxygen Saturation 97% 07/16/2022 4:44 PM EST Inhaled Oxygen Concentration - - Weight 87.1 kg (192 lb) 08/05/2024 1:37 PM EST Height 177.8 cm (5' 10 ) 08/05/2024 1:37 PM EST Body Mass Index 27.55 08/05/2024 1:37 PM EST Plan of Treatment Upcoming Encounters Date Type Department Care Team (Late st Contact Info) Description 08/26/2024 1:30 PM EDT Office Visit [facility] [address] [place] [phone] Sarah Floyd ANP [address] [place] [address] Health Maintenance Due Date Last Done Comments Depression Screening 1990 SDOH Screening 1990 Alcohol/Substance Use Screening 2002 Family Planning (PISQ) 2005 Hepatitis B Vaccines (1 of 3 - 19+ 3-dose series) 2009 Pneumococcal Vaccine: Pediat rics (0 to 5 Years) and At-Risk Patients (6 to 49) Years) (1 of 2 - PCV) 2009 COVID-19 Vaccine (1 - 2023-2 5 season) 2024 Influenza Vaccine (#1) 2024 06/16/2020 Tobacco Screening 08/05/2025 08/05/2024 DTaP/Tdap/Td Vaccines (2 - T d or Tdap) 06/16/2030 06/16/2020 Zoster Vaccines (1 of 2) 2040 RSV Patients and Pa tients Aged 60 years or older (1 - 1-dose 75+ series) 2065 HIV Screening Completed 10/05/2019 Hepatitis C Screening Completed 10/05/2019 HIB Vaccines Aged Out No longer eligi ble based on patient's age to complete this topic HPV Vaccines Aged Out No longer eligi ble based on patient's age to complete this topic Hepatitis A Vaccines Aged Out No long er eligible based on patient's age to complete this topic IPV Vaccines Aged Out No longer eligi ble based on patient's age to complete this topic Meningococcal Vaccine Aged Out No christine yaneth eligible based on patient's age to complete this topic RSV under 20 months Aged Out No longe r eligible based on patient's age to complete this topic Rotavirus Vaccines Aged Out No longer eligible based on patient's age to complete this topic Procedures Procedure Name Priority Date/Time Associated Diagnosis Comments CBC WITH AUTO DIFFERENTIAL Routine 08/05/2024 2:09 PM EST Dizziness ZZZ HISTORICAL HEPATITIS C ANTIBODY Routine 10/05/2019 3:17 PM EDT ZZZ HISTORICAL HIV AB/AG Routine 10/05/2019 3:17 PM EDT from Last 3 Months or Most Recently Relevant to Health Maintenance Results * CBC auto differential (08/05/2024 2:09 PM EST) White Blood Count 5.1 4.8 - 10.8 X10*3/uL [facility] Red Blood Count 4.88 4.60 - 5.80 X10*6/uL [facility] Hemoglobin 15.3 14.0 - 18.0 g/dl [facility] Hematocrit 45.5 42.0 - 52.0 % [facility] Mean Corpuscular Volume 93.2 80.0 - 98.0 fL [facility] Mean Corpuscular Hemoglobin 31.4 27.0 - 33.0 pg [facility] Mean Corpuscular HGB Conc 33.6 31.0 - 36.0 g/dl [facility] Red Cell Distribution Width 12.6 11.0 - 16.0 % [facility] Platelet Count 281 160 - 400 X10*3/uL [facility] Mean Platelet Volume 10.0 9.4 - 12.4 fL [facility] Neutrophils Percent Auto 64.7 45 - 73 % [facility] Imm Gran Pct Auto 0.2 0.0 - 0.4 % [facility] Lymphocytes Percent Auto 27.2 20 - 40 % [facility] Monocytes Percent Auto 7.3 2 - 11 % [facility] Eosinophils Percent Auto 0.4 0 - 4 % [facility] Basophils Percent Auto 0.2 0 - 2 % [facility] NRBC Pct Auto 0.0 0.0 - 0.2 /100WBC [facility] Neutrophils Absolute Auto 3.3 2.0 - 8.3 x10*3/uL [facility] Imm Gran Abs Auto 0.01 0.00 - 0.03 X10*3/uL [facility] Lymphocytes Absolute Auto 1.4 1.2 - 4.9 X10*3/uL [facility] Monocytes Absolute Auto 0.4 0.1 - 1.2 X10*3/uL [facility] Eosinophils Absolute Auto 0.0 0.0 - 0.4 X10*3/uL [facility] Basophils Absolute Auto 0.0 0.0 - 0.2 X10*3/uL [facility] NRBC Abs Auto 0.000 0.0 - 0.012 X10*3/uL [facility] Blood Venous blood specimen / Unknown 08/05/2024 2:09 PM EST 08/05/2024 4:19 PM EST Jacqueline Candido PATIENT CARE TECHNICIAN INSTRUCTOR LAB BLOOD ORDERABLES Final Resu lt Performing Organization Address [facility] Co de Phone Number [facility] [address] [place] [address] [phone] * HEPATITIS C ANTIBODY (10/05/2019 3:17 PM EDT) HEPATITIS C ANTIBODY [facility]ACTIVE [facility] Comment: Antibodies to HCV not detected; does not exclude early acute HCV infection. 10/05/2019 3:17 PM EDT us Sarah Floyd ANP HISTORICAL/NON ORDERABLE LABS Fi nal Result Performing Organization Address [facility] de Phone Number [facility] [address] * HIV AB/AG (10/05/2019 3:17 PM EDT) HIV AG/AB [facility]ACTIVE [facility] Comment: HIV-1 p24 Ag and/or HIV-1/HIV-2 Ab not detected. ?? A test result that is nonreactive does not exclude the possibility of exposure to or infection with HIV-1 and/or HIV-2. Nonreactive results in this assay for individuals with prior exposure to HIV-1 and/or HIV-2 may be due to antigen and antibody levels that are below the limit of detection of this assay. ?? The [employer] [facility] HIV Ag/Ab Combo assay result and supplemental assay results should be interpreted in conjunction with the patient's clinical presentation, history and other laboratory results. ??If the results are inconsistent with clinical evidence, additional testing is suggested to confirm the result. 10/05/2019 3:17 PM EDT us Sarah Floyd ANP HISTORICAL/NON ORDERABLE LABS Fi nal Result Performing Organization Address [facility] Co de Phone Number [facility] [address] from Last 3 Months or Most Recently Relevant to Health Maintenance Insurance [facility] C3 Care Teams Health Safety Instructor Relationship Specialty Start Date End Date Sarah Floyd ANP [address] [place] [phone] PCP - General Family Medicine 04/06/20
--- OUTSIDE RECORDS SUMMARY | 2024-08-05 17:19 | XMS_ITS | Encounter Summary ---
Author Organization [employer] Address [address] [place] [address] Care Team Providers Care Pattern Hanger Name Role Phone Sarah Floyd ANDER Primary Care Provider [phone] Reason for Visit * Reason Comments Dizziness Encounter Details Date Type Department Care Team ([facility] st Contact Info) Description 08/05/2024 1:20 PM EST Office Visit [facility] [address], [place] [id number] Dizziness (Primary Dx); Nonintractable headache, unspecified chronicity pattern, unspecified headache type; Neck tightness Social History Tobacco Use Types Packs/Day Years [...] AM EDT documented as of this encounter Last Filed Vital Signs Vital Sign Reading Time Taken Comments Blood Pressure 126/86 08/05/2024 1:43 PM EST Pulse 70 08/05/2024 1:37 PM EST Temperature 36.7 ??C (98 ??F) 08/05/2024 1:37 PM EST Respiratory Rate - - Oxygen Saturation - - Inhaled Oxygen Concentration - - Weight 87.1 kg (192 lb) 08/05/2024 1:37 PM EST Height 177.8 cm (5' 10 ) 08/05/2024 1:37 PM EST Body Mass Index 27.55 08/05/2024 1:37 PM EST documented in this encounter Miscellaneous Notes * Patient Education Note - Jacqueline Rey, PHARMACY BUYER - 08/05/2024 7:01 PM EST Images from the original note were not included. Patient Education Table of Contents Ejercicios para el manpreet (Neck Exercises) To view videos and all your education online visit, [email or web address] or scan this QR code with your smartphone. Access to this content will in one year. Ejercicios para el manpreet Neck Exercises Pregunte al m?dico qu?? ejercicios son seguros para usted. Kaushik los ejercicios exactamente cari se lo haya indicado el m?dico y grad?elos cari se lo hayan indicado. Es normal sentir un leve estiramiento, tironeo, opresi?n o malestar al hacer estos ejercicios. Det?ngase de inmediato si siente un dolor repentino o el dolor empeora. No comience a hacer estos ejercicios hasta que se lo indique el m?dico. Los ejercicios para el manpreet pueden ser importantes por muchos motivos. Pueden mejorar la fuerza ymantener la flexibilidad del manpreet, lo que ser?? ?til para la parte superior de la espalda y para prevenir el dolor de manpreet. Ejercicios de estiramiento Estiramiento del manpreet con rotaci?n 1. Si?ntese en carmen silla o p?rese. Apoye los pies en el piso, con carmen separaci?n del ancho de los hombros. Gire lentamente la brittny (r?lobo) hacia la derecha hasta sentir un ligero estiramiento. G?rela completamente hacia la derecha de modo que pueda wyatt por encima de man hombro derecho. No incline ni ladee la brittny. Mantenga esta posici?n hao 10 a 30?segundos. Gire lentamente la brittny (r?lobo) hacia la izquierda hasta sentir un ligero estiramiento. G?rela completamente hacia la izquierda de modo que pueda wyatt por encima de man hombro luis daniel. No incline ni ladee la brittny. Mantenga esta posici?n hao 10 a 30?segundos. Repita veces. Realice ernesto ejercicio veces al d?a. Retracci?n del manpreet 1. Si?ntese en carmen silla resistente o p?rese. Aubrie hacia adelante. No doble el manpreet. Use los dedos para empujar la barbilla hacia atr?s (retracci?n). No doble el manpreet al realizar ernesto movimiento. Siga mirando hacia adelante. Si hace el ejercicio correctamente, tendr?? carmen leve sensaci?n en la garganta y sentir?? que la nuca se estira. Mantenga la elongaci?n hao 1?o 2?segundos. Repita veces. Realice ernesto ejercicio veces al d?a. Ejercicios de fortalecimiento Presi?n con el manpreet 1. Recu?stese sobre man espalda en carmen cama firme o en el suelo, y coloque carmen almohada debajo de lacabeza. Use los m?sculos del manpreet para presionar la brittny contra la almohada y enderezar la columna vertebral. Mantenga la posici?n lo mejor que pueda. Mantenga la brittny hacia arriba (en posici?n neutral) y elment?n hacia abajo. Cuente lentamente hasta 5?mientras mantiene esta posici?n. Repita veces. Realice ernesto ejercicio veces al d?a. Isometr?a Estos son ejercicios en los que se fortalecen los m?sculos del manpreet mientras se mantiene el manpreet quieto (isometr?a). 1. Si?ntese en carmen silla con buen apoyo y coloque carmen mano sobre la frente. Mantenga la brittny y la obed mirando hacia adelante. No flexione o extienda el manpreet mientras haceejercicios greta?tricos. Empuje hacia adelante con la brittny y el manpreet mientras que con la mano ejerce cierta presi?n hacia el lado contrario. Mantenga esta posici?n hao 10?segundos. Vuelva a realizar la secuencia, esta vez poniendo la mano contra la nuca. Use la brittny y el cuellopara empujar en la direcci?n contraria a la presi?n que ejerce con la mano. Para terminar, kaushik el mismo ejercicio en cada lado de la brittny, empujando hacia los lados en la direcci?n contraria a la presi?n de la mano. Repita veces. Realice ernesto ejercicio veces al d?a. Levantamientos de la brittny desde la posici?n dec?bito prono 1. Acu?stese boca abajo (posici?n prona) y apoye los codos de modo que el pecho y la parte superiorde la espalda se eleven. Comience con la brittny mirando hacia abajo, cerca del pecho. Coloque el ment?n cerca del pecho o sobre ernesto. Eleve lentamente la brittny. H?timbo hasta quedar mirando hacia adelante. Luego contin?e elevando y estirando la brittny hacia atr?s lo m?s que pueda con comodidad. Mantenga la brittny elevada hao 5?segundos. A continuaci?n, b?jela lentamente hasta la posici?n inicial. Repita veces. Realice ernesto ejercicio veces al d?a. Levantamientos de la brittny desde la posici?n dec?bito supino 1. Acu?stese sobre la espalda (posici?n dec?bito supino), doble las rodillas apuntando hacia el techo y mantenga los pies apoyados en el piso. Levante lentamente la brittny del suelo, y eleve el ment?n hacia el pecho. Mantenga esta posici?n hao 5?segundos. Repita veces. Realice ernesto ejercicio veces al d?a. Retracci?n escapular 1. P?rese con los brazos a los costados. Aubrie hacia adelante. Lentamente, lleve los hombros (esc?pulas) hacia atr?s y hacia abajo (retracci?n) hasta sentir que la gianluca de los om?platos, en la parte carley de la espalda, se estira. Mantenga esta posici?n hao 10 a 30?segundos. Rel?marita y luego repita el ejercicio. Repita veces. Realice ernesto ejercicio veces al d?a. Comun?quese con un m?dico si: El dolor o las molestias en el manpreet empeoran cuando hace un ejercicio. El dolor o las molestias en el manpreet no mejoran en el t?rmino de las 2?horas posteriores a hacer los ejercicios. Si tiene alguno de estos problemas, deje de hacer los ejercicios de inmediato. No vuelva a hacer los ejercicios a menos que el m?dico lo autorice. Solicite ayuda de inmediato si: Siente un dolor s?bito e intenso en el manpreet. Si esto ocurre, deje de hacer los ejercicios de inmediato. No vuelva a hacer los ejercicios a menosque el m?dico lo autorice. Esta informaci?n no tiene cari fin reemplazar el consejo del m?dico. Aseg?rese de hacerle al m?dicocualquier pregunta que tenga. Document Released: 2016-06-14 Document Updated: 2021-12-07 Document Reviewed: 2021-12-07 [employer] Patient Education ? 2024 5 examples. documented in this encounter Plan of Treatment Upcoming Encounters Date Type Department Care Team ([facility] st Contact Info) Description 08/26/2024 1:30 PM EDT Office Visit [facility] [address] [place] [address] Sarah Floyd ANP [address] [place], [place] [phone] Scheduled Orders Name Type Priority Associated Diagnoses Orde r Schedule Basic Metabolic Panel Lab Routine Dizziness Expected: 08/05/2024 (Approximate), Expires: 08/05/2025 Vitamin D, 25-Hydroxy, Total, Immunoassay Lab Routine Dizziness Expected: 08/05/2024 (Approximate), Expires: 08/05/2025 documented as of this encounter Procedures Procedure Name Priority Date/Time Associated Diagnosis Comments CBC WITH AUTO DIFFERENTIAL Routine 08/05/2024 2:09 PM EST Dizziness documented in this encounter Results * CBC auto differential (08/05/2024 2:09 PM EST) White Blood Count 5.1 4.8 - 10.8 X10*3/uL [facility] Red Blood Count 4.88 4.60 - 5.80 X10*6/uL [facility] Hemoglobin 15.3 14.0 - 18.0 g/dl [facility] Hematocrit 45.5 42.0 - 52.0 % [facility] Mean Corpuscular Volume 93.2 80.0 - 98.0 fL [facility] Mean Corpuscular Hemoglobin 31.4 27.0 - 33.0 pg [facility] Mean Corpuscular HGB Conc 33.6 31.0 - 36.0 g/dl [facility] Red Cell Distribution Width 12.6 11.0 - 16.0 % [facility] Platelet Count 281 160 - 400 X10*3/uL [facility] Mean Platelet Volume 10.0 9.4 - 12.4 fL [facility] Neutrophils Percent Auto 64.7 45 - 73 % [facility] Imm Gran Pct Auto 0.2 0.0 - 0.4 % [facility] Lymphocytes Percent Auto 27.2 20 - 40 % [facility] Monocytes Percent Auto 7.3 2 - 11 % [facility] Eosinophils Percent Auto 0.4 0 - 4 % [facility] Basophils Percent Auto 0.2 0 - 2 % [facility] NRBC Pct Auto 0.0 0.0 - 0.2 /100WBC [facility] Neutrophils Absolute Auto 3.3 2.0 - 8.3 x10*3/uL [facility] Imm Gran Abs Auto 0.01 0.00 - 0.03 X10*3/uL [facility] Lymphocytes Absolute Auto 1.4 1.2 - 4.9 X10*3/uL [facility] Monocytes Absolute Auto 0.4 0.1 - 1.2 X10*3/uL [facility] Eosinophils Absolute Auto 0.0 0.0 - 0.4 X10*3/uL [facility] Basophils Absolute Auto 0.0 0.0 - 0.2 X10*3/uL [facility] NRBC Abs Auto 0.000 0.0 - 0.012 X10*3/uL [facility] Blood Venous blood specimen / Unknown 08/05/2024 2:09 PM EST 08/05/2024 4:19 PM EST Jacqueline Rey PHARMACY BUYER LAB BLOOD ORDERABLES Final Resu lt [facility] [address] [place] [phone] documented in this encounter Visit Diagnoses Diagnosis Dizziness- Primary Dizziness and giddiness Nonintractable headache, unspecified chronicity pattern, unspecified headache type Neck tightness documented in this encounter Care Teams Pattern Hanger Relationship Specialty Start Date End Date Sarah Floyd ANP [address] [place] [address] PCP - General Family Medicine 04/06/20 documented as of this encounter
[2024-08-05 17:42] LABS: Anion Gap 13 (12-20); Blood Urea Nitrogen 13 mg/dL (9-16); Calcium 9.6 mg/dL (8.4-10.2); Carbon Dioxide 24 mmol/L (22-29); Chloride 107 mmol/L (96-108); Estimated Glomerular Filt Rate > 60; Glucose Random 91 mg/dL (60-115); Potassium 4.2 mmol/L (3.3-5.1); Sodium 140 mmol/L (135-145)
[2024-08-05 17:54] LABS: Vitamin D 25-OH Total 15.3 ng/mL (>30)
== END 2024-08-05 14:08 | disposition home or self-care (01) ==
LOC: HO.HHCL 14:07
PROVIDERS: Visit Provider Nurse Practitioner
DX: R42 Dizziness and giddiness (principal)
CPT/HCPCS: 36415; 80048; 82306; 85025

== ENCOUNTER 2024-08-26 14:41 | Outpatient (REF) | payer MEDICAID, SELFPAY ==
[2024-08-26 16:18] LABS: Estimated Average Glucose 111 mg/dL; Hemoglobin A1C 143.4882 umol/L; Hemoglobin A1c % 5.5 % (<6.0); Total Hemoglobin (HGBA1C) 3912.9534 umol/L
[2024-08-26 16:32] LABS: Prostate Specific Antigen 0.61 ng/mL (<0.05-4.0)
[2024-08-26 16:56] LABS: Alanine Aminotransferase 107 U/L (0-40); Albumin Level 4.7 g/dL (3.5-5.0); Alkaline Phosphatase 76 U/L (39-117); Aspartate Amino Transferase 113 U/L (5-37); Bilirubin Direct 0.2 mg/dL (0.0-0.5); Bilirubin Total 0.9 mg/dL (0.0-1.0); Total Protein 7.7 g/dL (6.5-8.0)
[2024-08-26 18:16] LABS: CT PCR NOT DETECTED (Not Detect.); NG PCR NOT DETECTED (Not Detect.)
== END 2024-08-26 14:42 | disposition home or self-care (01) ==
LOC: HO.HHCL 14:41
PROVIDERS: Visit Provider Nurse Practitioner Primary Care
DX: Z00.00 Encounter for general adult medical examination without abnormal findings (principal); Z11.3 Encounter for screening for infections with a predominantly sexual mode of transmission; Z83.3 Family history of diabetes mellitus; Z80.42 Family history of malignant neoplasm of prostate
CPT/HCPCS: 36415; 80076; 83036; 84153; 87491; 87591